=== PATIENT | male | born 1975 | race Caucasian/White ===

== ENCOUNTER 2023-11-14 00:29 | Emergency (ER) | payer SELFPAY ==
[~2023-11-14] VITALS: Ht 180.3 cm; Wt 77.0 kg
[2023-11-14] VITALS (30 sets, daily range): BP systolic 108–159; BP diastolic 55–98
[~2023-11-14 00:29] MED LIST: FLEXERIL OR; LORTAB5 PO; NO CURRENT MEDS; PERCOCET 5/325M1 TAB OR; VENTOLIN HFA IN; ZPAK OR
[2023-11-14 02:49] LABS: BASO% 0.2 % (0-3); EOS% 0.9 % (0-8); HEMATOCRIT 48.2 % (39.0-50.0); HEMOGLOBIN 15.3 g/dl (14.0-18.0); IMMATURE GRANULOCYTES 0.5 % (0.0-5.0); MEAN CORPUSCULAR HGB 29.5 pG CALC (26.0-32.0); MEAN CORPUSCULAR HGB CONC 31.7 g/dL CAL (32.0-36.0); MONO% 4.1 % (2-13); NEUT# 17.08 thou/uL (1.82-7.42); NEUT% 85.3 % (42-76); RED BLOOD COUNT 5.19 mill/uL (4.70-6.10); RED CELL DISTRI WIDTH 13.6 % (11.5-15.5)
[2023-11-14 02:54] LABS: MEAN CELL VOLUME 92.9 fL CALC (80.0-100.0)
[2023-11-14 03:07] LABS: ETHYL ALCOHOL 0 mg/dl (0-30)
[2023-11-14 06:43] LABS: URINE BLOOD DIPSTICK Negative (NEGATIVE); URINE GLUCOSE - DIPSTICK 100 mg/dL (NEGATIVE); URINE KETONE 15 mg/dL (NEGATIVE); URINE LEUK ESTERASE Negative (NEGATIVE); URINE NITRITE - DIPSTICK Negative (Negative); URINE PROTEIN - DIPSTICK 30 mg/dL (NEG-TRACE); URINE SPECIFIC GRAVITY >=1.030; URINE UROBILINOGEN - DIPSTICK 0.2 E.U./dL (0.2)
[2023-11-14 06:44] LABS: URINE COLOR Yellow
[2023-11-14 06:50] LABS: ALKALINE PHOSPHATASE 75 u/l (38-126); ANION GAP 15 (6-22 (CALC)); BUN 23 mg/dL (9-20); BUN/CREATININE RATIO 24 (12-20 (CALC)); CARBON DIOXIDE 26 mmol/l (22-30); CHLORIDE 106 mmol/l (95-108); CPK 232 u/l (55-170); GFR FOR AFR.AMER. > 60 ML/MIN (>=60 (CALC)); GFR OTHER RACES > 60 ML/MIN (>=60 (CALC)); POTASSIUM 4.4 mmol/l (3.5-5.1); SODIUM 142 mmol/l (137-146); TOTAL PROTEIN 8.7 g/dL (6.3-8.2)
[2023-11-14 06:51] LABS: BILIRUBIN, TOTAL 0.2 mg/dL (0.2-1.3); SGOT/AST 45 u/l (17-59)
[2023-11-14 06:52] LABS: URINE BACTERIA FEW hpf; URINE SQUAMOUS EPITHELIAL CELL FEW EPI/hpf (0-FEW)
== END 2023-11-14 08:00 | disposition home or self-care (01) | DRG 918 ==
LOC: ED 00:29
PROVIDERS: Internal Medicine
DX: T43.651A Poisoning by methamphetamines accidental (unintentional), initial encounter (principal); F15.10 Other stimulant abuse, uncomplicated; F17.200 Nicotine dependence, unspecified, uncomplicated